=== PATIENT | male | born 1990 | race Caucasian/White ===

== ENCOUNTER 2024-03-29 11:00 | Emergency (ER) | payer OTHER, SELFPAY ==
[2024-03-29 11:09] VITALS: BP 126/84
--- NOTE | 2024-03-29 11:11 | ED.SKININJ ---
HPI-Injury
<Reed Baum PA-C - Last Filed: 03/29/24 11:12>
General
Chief Complaint: Eye Problems
Time Seen by Provider: 03/29/24 11:48
<Rafy Mazariegos MD - Last Filed: 03/29/24 13:24>
History of Present Illness-Injury
Initial Injury comments:
Patient is a 33-year-old man who is otherwise healthy presenting to the emergency department with eye injury. 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 There has been pieces flying around.
He states that something went into his left eye. He did wash it at work for quite some time. However he still has a foreign body sensation. No vision changes. No redness. no trauma elsewhere. He does not wear contact lenses.
ED Provider Triage
<Reed Baum PA-C - Last Filed: 03/29/24 11:12>
-
Patient seen by provider in Triage?: Seen in Triage
Healthy 33-year-old male presents with left eye discomfort. He works at the correction and they were doing construction. Something blew in his left eye. He notes discomfort. He denies any vision change. Vital signs are stable through triage.
Recommended further evaluation.
Past History
<Reed Baum PA-C - Last Filed: 03/29/24 11:12>
Past History
ED Past Surgical History: Tonsilectomy
Social History
Tobacco: Non-smoker
Alcohol: None
Employment: Employed
Phy Exam
<Rafy Mazariegos MD - Last Filed: 03/29/24 13:24>
Physical Exam
Physical Exam:
Pupils: equal and reactive,
Extra-ocular movement: [ No palsy or entrapment]
Visual morrison: intact
Eyelids:[Normal inspection,] [no edema] [no subcutaneous orbital emphysema] [no erythema,] [no stye,] [no periorbital ecchymosis.]
Eyelid everted for exam?[Yes] [No foreign body seen under eyelid].
Conjunctiva/Sclera: [Normal inspection,] [no injection,] [no exudate,] [no conjunctival foreign material,] [no subconjunctival hemorrhage,] [no scleral icterus].
Cornea:[Normal inspection]
Fluoroscein exam? small abrasion at the 12 o'clock position [no foreign body seen,] [no corneal ulcer].
Course
<Reed Baum PA-C - Last Filed: 03/29/24 11:12>
Vital Signs
Initial and Last Documented VS:
Initial Vital Signs
Temp Pulse Resp BP Pulse Ox
99.0 F 94 16 126/84 98
03/29/24 11:09 03/29/24 11:09 03/29/24 11:09 03/29/24 11:09 03/29/24 11:09
Last Documented Vital Signs
Temp Pulse Resp BP Pulse Ox
99.0 F 94 16 126/84 98
03/29/24 11:09 03/29/24 11:09 03/29/24 11:09 03/29/24 11:09 03/29/24 11:09
<Rafy Mazariegos MD - Last Filed: 03/29/24 13:24>
Vital Signs
Initial and Last Documented VS:
Initial Vital Signs
Temp Pulse Resp BP Pulse Ox
99.0 F 94 16 126/84 98
03/29/24 11:09 03/29/24 11:09 03/29/24 11:09 03/29/24 11:09 03/29/24 11:09
Last Documented Vital Signs
Temp Pulse Resp BP Pulse Ox
99.0 F 94 16 126/84 98
03/29/24 11:09 03/29/24 11:09 03/29/24 11:09 03/29/24 11:09 03/29/24 11:09
<Rafy Mazariegos MD - Last Filed: 03/29/24 13:24>
MDM/Problems Addressed
Differential Diagnosis Includes:
Patient is a 33-year-old man presenting to the emergency department with a foreign body sensation. On exam no foreign body visualized but he does have a corneal abrasion that is small. Pupils are equal and reactive. No signs of consensual
photophobia and no ciliary flush or conjunctival injection to suggest traumatic iritis. Will prescribe tobramycin for corneal abrasion. Strict return precautions given. Will discharge this time.
<Rafy Mazariegos MD - Last Filed: 03/29/24 13:24>
*Critical Care Note
Total Time (30-74mins, 75-104mins- exclusive of procedures): Not Applicable
ED Attending Note
<Reed Baum PA-C - Last Filed: 03/29/24 11:12>
-
Portions of this chart may have been created with voice recognition software.� Occasional wrong word or��sound alike� substitutions may have occurred due to the inherent limitations of voice recognition software.
Discharge Plan
Departure
Patient Disposition: Home (Routine Discharge)
Date of Disposition: 03/29/24
Time of Disposition: 13:06
Patient with high blood pressure during this ER visit?: No
Discharge Problem:
Corneal abrasion
Instructions: Corneal Abrasion (DC)
Prescriptions:
New
tobramycin 0.3 % drops
2 drp ophthalmic (eye) Q6H Qty: 5 0RF
No Action
clonazepam 0.5 MG tablet
0.5 mg PO Q6HPRN PRN (Reason: anxiety)
loratadine 10 MG tablet
10 mg PO DAILY
amoxicillin-pot clavulanate 1 TABLET tablet
1 tab PO Q12
escitalopram oxalate 20 MG tablet
20 mg PO DAILY
Referrals:
NONE,* [Family Provider] -
Stand Alone Forms: Return to Work
Interventions
Interventions:
*Risk Screen - Suicide Last Done: 03/29/24 11:09
*General Assessment Last Done: 03/29/24 11:09
*Neglect/Abuse Screening Last Done: 03/29/24 11:09
ED- Fall Risk Assessment Last Done: 03/29/24 11:21
*ED COVID-19 Vaccine History Last Done: 03/29/24 11:09
*Nursing Disposition Last Done: 03/29/24 13:11
Discharge Date and Time
Discharge Date/Time: 03/29/24 13:11
Print Language: UGANDAN
== END 2024-03-29 13:11 | disposition home or self-care (01) ==
LOC: EMR 11:00
PROVIDERS: EMERGENCY PHYSICIAN Student in an Organized Health Care Education/Training Program
DX: S05.02XA Injury of conjunctiva and corneal abrasion without foreign body, left eye, initial encounter (principal); X58.XXXA Exposure to other specified factors, initial encounter
CPT/HCPCS: 99282